=== PATIENT | female | born 1945 | race Caucasian/White ===

== ENCOUNTER 2017-01-01 01:29 | Emergency (ER) | payer MEDICARE, BC ==
[~2017-01-01] VITALS: Ht 170.2 cm; Wt 68.1 kg
[~2017-01-01 01:29] MED LIST: AMBIEN10 MG PO; ASPIRIN81 MG PO; DOXYCYCL HYC100 MG PO; MAREPA1000 MG OR; MUPIROCIN2 % EX; NORCO1 TA1 PO; SYNTHROID100 MCG PO; VALTREX1 GM PO; [UNRECOGNIZED DRUG - OTHER] PO
[2017-01-01 02:21] LABS: HEMOGLOBIN 13.5 g/dl (12.0-16.0); IMMATURE GRANULOCYTES 0.3 % (0.0-1.0); MEAN CELL VOLUME 98.6 fL CALC (80.0-100.0); MEAN CORPUSCULAR HGB 32.5 pG CALC (26.0-32.0); MEAN CORPUSCULAR HGB CONC 32.9 g/L CALC (32.0-36.0); NEUT# 5.41 thou/uL (2.00-7.15); RED BLOOD COUNT 4.16 mill/uL (4.20-5.60); RED CELL DISTRI WIDTH 13.8 % (11.5-15.5)
[2017-01-01 02:43] LABS: ALBUMIN 4.2 g/dL (3.2-5.0); ALKALINE PHOSPHATASE 39 u/l (38-126); ANION GAP 15 (6-22 (CALC)); BILIRUBIN, TOTAL 0.5 mg/dL (0.0-1.4); BUN 15 mg/dL (8-23); BUN/CREATININE RATIO 20 (12-20 (CALC)); CALCIUM 9.7 mg/dL (8.4-10.2); CARBON DIOXIDE 25 mmol/l (22-30); CHLORIDE 112 mmol/l (95-108); CREATININE 0.7 mg/dL (0.5-1.0); GFR > 60 ML/MIN (>=60 (CALC)); GFR FOR AFR.AMER. > 60 ML/MIN (>=60 (CALC)); GLUCOSE 95 mg/dL (82-115); POTASSIUM 4.2 mmol/l (3.5-5.1); SGOT/AST 22 u/l (9-36); SGPT/ALT 24 u/l (11-66); SODIUM 148 mmol/l (137-146); TOTAL PROTEIN 7.4 g/dL (6.3-8.2)
[2017-01-01] MEDS ORDERED: MIRALAX3350 N1 PO (02:53)
[2017-01-01 03:00] VITALS: BP 134/68
== END 2017-01-01 03:03 | disposition home or self-care (01) ==
LOC: ED 01:29
PROVIDERS: Emergency Medicine
DX: K59.00 Constipation, unspecified (principal); E03.9 Hypothyroidism, unspecified

== ENCOUNTER 2017-01-14 01:37 | Emergency (ER) | payer MEDICARE, BC ==
[~2017-01-14] VITALS: Ht 170.2 cm; Wt 70.0 kg
[~2017-01-14 01:37] MED LIST changes: +MIRALAX3350 N1 PO
[2017-01-14] MEDS ORDERED: MIRTAZAPINE30 M2 PO (01:44)
[2017-01-14] MEDS ORDERED: APAP/HYDRO325 MG/10 PO (01:44)
[2017-01-14] MEDS ORDERED: MIRALAX3350 N1 PO (03:32)
[2017-01-14 03:49] VITALS: BP 138/73
== END 2017-01-14 03:48 | disposition home or self-care (01) ==
LOC: ED 01:37
DX: R10.33 Periumbilical pain (principal); K59.00 Constipation, unspecified

== ENCOUNTER → 2017-12-10 | Outpatient (REF) | payer MEDICARE, BC ==
[~2017-12-10] MED LIST changes: +APAP/HYDRO325 MG/10 PO; +HEMP OIL; +LEVOTHYROXIN125 MCG PO; +MIRTAZAPINE30 M2 PO; +PROLIA60 MG/ML SC
== END | disposition home or self-care (01) ==
LOC: LAB 10:59
PROVIDERS: ATTEND Internal Medicine
DX: E03.9 Hypothyroidism, unspecified (principal)

== ENCOUNTER → 2017-12-13 | Outpatient (REF) | payer MEDICARE, BC | END | disposition home or self-care (01) | LOC: DI 11:22 | PROVIDERS: ATTEND Nurse Practitioner | DX: R06.02 Shortness of breath (principal); R09.89 Other specified symptoms and signs involving the circulatory and respiratory systems ==

== ENCOUNTER → 2018-04-26 | Outpatient (REF) | payer MEDICARE, BC ==
[2018-04-26 09:55] LABS: HEMATOCRIT 43.8 % (37.0-47.0); HEMOGLOBIN 13.9 g/dl (12.0-16.0); IMMATURE GRANULOCYTES 0.1 % (0.0-5.0); MEAN CELL VOLUME 99.3 fL CALC (80.0-100.0); MEAN CORPUSCULAR HGB 31.5 pG CALC (26.0-32.0); MEAN CORPUSCULAR HGB CONC 31.7 g/L CALC (32.0-36.0); NEUT# 3.55 thou/uL (2.00-7.15); RED BLOOD COUNT 4.41 mill/uL (4.20-5.60); RED CELL DISTRI WIDTH 14.6 % (11.5-15.5)
[2018-04-26 11:48] LABS: ALBUMIN 3.7 g/dL (3.2-5.0); ALKALINE PHOSPHATASE 54 u/l (38-126); ANION GAP 12 (6-22 (CALC)); BILIRUBIN, TOTAL 0.4 mg/dL (0.0-1.4); BUN 12 mg/dL (8-23); BUN/CREATININE RATIO 14 (12-20 (CALC)); CALCULATED LDLCHOLESTEROL 79 mg/dL (62-129 (CALC)); CARBON DIOXIDE 27 mmol/l (22-30); CHLORIDE 108 mmol/l (95-108); CREATININE 0.9 mg/dL (0.5-1.0); GFR > 60 ML/MIN (>=60 (CALC)); GFR FOR AFR.AMER. > 60 ML/MIN (>=60 (CALC)); HDL CHOLESTEROL 95 mg/dL (>=40); POTASSIUM 4.9 mmol/l (3.5-5.1); SGOT/AST 22 u/l (9-36); SODIUM 142 mmol/l (137-146); TOTAL CHOLESTEROL 187 mg/dl (0-199); TOTAL PROTEIN 7.1 g/dL (6.3-8.2); TOTAL TRIGLYCERIDES 68 mg/dl (30-149); VLDL CHOLESTROL 14 mg/dl (0-48 (CALC))
[2018-04-26 12:05] LABS: TSH, 3RD GENERATION 8.17 uIU/mL (0.47 - 4.68)
== END | disposition home or self-care (01) ==
LOC: LAB 09:03
PROVIDERS: ATTEND Internal Medicine
DX: E78.49 Other hyperlipidemia (principal)

== ENCOUNTER → 2018-05-04 | Outpatient (REF) | payer MEDICARE, BC | END | disposition home or self-care (01) | LOC: MAMMO 13:00 | PROVIDERS: ATTEND Internal Medicine | DX: Z12.31 Encounter for screening mammogram for malignant neoplasm of breast (principal); N95.1 Menopausal and female climacteric states ==

== ENCOUNTER → 2018-05-28 | Outpatient (REF) | payer MEDICARE, BC ==
[2018-05-28 10:58] LABS: TSH, 3RD GENERATION 18.9 uIU/mL (0.47 - 4.68)
== END | disposition home or self-care (01) ==
LOC: LAB 08:17
PROVIDERS: ATTEND Internal Medicine
DX: E03.9 Hypothyroidism, unspecified (principal)

== ENCOUNTER 2018-06-18 14:54 | Observation (INO) | payer MEDICARE, BC ==
[~2018-06-18] VITALS: Ht 170.2 cm; Wt 74.4 kg
--- NOTE | 2018-06-18 15:08 | NUR ---
PATIENT TO ROOM VIA WHEELCHAIR AND PHYSICIAN AT BEDSIDE FOR EVAL
[2018-06-18 16:14] LABS: IMMATURE GRANULOCYTES 0.3 % (0.0-5.0); MEAN CELL VOLUME 99.5 fL CALC (80.0-100.0); MEAN CORPUSCULAR HGB 31.2 pG CALC (26.0-32.0); MEAN CORPUSCULAR HGB CONC 31.3 g/L CALC (32.0-36.0); NEUT# 3.37 thou/uL (2.00-7.15); RED BLOOD COUNT 3.82 mill/uL (4.20-5.60); RED CELL DISTRI WIDTH 15.5 % (11.5-15.5)
[2018-06-18 16:19] LABS: HEMOGLOBIN 11.9 g/dl (12.0-16.0)
[2018-06-18 16:32] LABS: ALBUMIN 3.3 g/dL (3.2-5.0); ALKALINE PHOSPHATASE 41 u/l (38-126); ANION GAP 9 (6-22 (CALC)); BILIRUBIN, TOTAL 0.3 mg/dL (0.0-1.4); BUN 17 mg/dL (8-23); BUN/CREATININE RATIO 25 (12-20 (CALC)); CARBON DIOXIDE 26 mmol/l (22-30); CHLORIDE 110 mmol/l (95-108); CREATININE 0.7 mg/dL (0.5-1.0); GFR > 60 ML/MIN (>=60 (CALC)); GFR FOR AFR.AMER. > 60 ML/MIN (>=60 (CALC)); POTASSIUM 4.4 mmol/l (3.5-5.1); SGOT/AST 17 u/l (9-36); SODIUM 141 mmol/l (137-146); TOTAL PROTEIN 6.2 g/dL (6.3-8.2)
--- NOTE | 2018-06-18 16:56 | NUR ---
ASSISTED PT TO BATHROOM, GATE SLIGHTLY UNSTEADY, AMBULATED WITH CANE. NOTED O2 SAT 88% ON RETURN TO BED. MD AWARE. SISTER AT BEDSIDE
--- NOTE | 2018-06-18 17:20 | NUR ---
PT WITH RR 18, NO DISTRESS, O2 SAT 96% ON RA
[2018-06-18] MEDS ORDERED: OMEPRAZOLE20 MG PO (17:27)
[2018-06-18] MEDS ORDERED: LEVOTHYROXIN100 MCG PO (17:27)
[2018-06-18 17:28] LABS: URINE BILIRUBIN - DIPSTICK NEGATIVE (NEGATIVE); URINE BLOOD DIPSTICK NEGATIVE (NEGATIVE); URINE COLOR YELLOW; URINE GLUCOSE - DIPSTICK NEGATIVE (NEGATIVE); URINE KETONE NEGATIVE (NEGATIVE); URINE LEUK ESTERASE NEGATIVE (NEGATIVE); URINE NITRITE - DIPSTICK NEGATIVE (Negative); URINE PROTEIN - DIPSTICK NEGATIVE (NEG-TRACE); URINE UROBILINOGEN - DIPSTICK 0.2 E.U./dL (0.2)
[2018-06-18] MEDS ORDERED: LEXAPRO10 MG PO (17:28)
--- NOTE | 2018-06-18 17:45 | NUR ---
PT AWARE OF ADMISSION AND AGREEABLE. VSS. PT IN NO DISTRESS. PT CONSUMED 100% OF MEAL TRAY
[2018-06-18 18:00] LABS: TSH, 3RD GENERATION 1.22 uIU/mL (0.47 - 4.68)
--- NOTE | 2018-06-18 18:01 | NUR ---
CALLED REPORT TO GABBIE CLAIRE MS
--- NOTE | 2018-06-18 18:09 | NUR ---
PT TRANSPORTTED TO [place] VIA STRETCHER ON TELE IN STABLE CONDITION
--- NOTE | 2018-06-18 18:20 | NUR ---
PT ARRIVED ON FLOOR VIA STRETCHER ACCOMPANIED BY ER STAFF IN STABLE CONDITION; AMBULATE TO DIGITAL STANDING SCALE WITH SLOW STEADY GAIT; WT AND VITALS OBTAIN WALKED WITH SLOW STEADY GAIT TO RESTROOM, ACCCOMPANIED BY [employer]ER AND BACK TO BED; VOIDED A FEW DROPS. A/O; CALL BEEBE IN REACH, SAFETY PREAUTION REINFORCE;
[2018-06-18 18:37] VITALS: BP 149/80
--- NOTE | 2018-06-18 19:00 | NUR ---
RECIEVED REPORT FROM DAY NURSE. PT RESTING QUIETLY IN BED. NO NEEDS AT THIS TIME. CALL BEEBE IN REACH. WILL CONTINUE TO MONITOR.
[2018-06-18 19:22] VITALS: BP 123/73
--- NOTE | 2018-06-18 21:00 | NUR ---
PTRESTING IN BED WITH LIGHTS OFF. NO S/S OF DISTRESS. WILL CONTINUE TO MONITOR.
--- NOTE | 2018-06-18 23:00 | NUR ---
PT ASLEEP AT THIS TIME. WAKES WITH VERBAL STIMULI. ASSESMENT COMPLETED AT THIS TIME. IV FLUSHES WELL. O2 @ 2L AT BEDSIDE. NO NEEDS OR COMPLAINTS. WILL CONTINUE TO MONITOR.
[2018-06-18 23:41] VITALS: BP 113/67
--- NOTE | 2018-06-19 04:00 | NUR ---
PT RESTING QUIETLY IN BED WITH EYES CLOSED. NO S/S OF DISTRESS NOTED. WILL CONTINUE TO MONITOR.
[2018-06-19 04:08] VITALS: BP 141/81
[2018-06-19 06:22] LABS: IMMATURE GRANULOCYTES 0.2 % (0.0-5.0); MEAN CELL VOLUME 97.9 fL CALC (80.0-100.0); MEAN CORPUSCULAR HGB 30.9 pG CALC (26.0-32.0); MEAN CORPUSCULAR HGB CONC 31.6 g/L CALC (32.0-36.0); NEUT# 2.72 thou/uL (2.00-7.15); RED BLOOD COUNT 3.88 mill/uL (4.20-5.60); RED CELL DISTRI WIDTH 15.5 % (11.5-15.5)
[2018-06-19 06:39] LABS: ANION GAP 9 (6-22 (CALC)); BUN 15 mg/dL (8-23); BUN/CREATININE RATIO 24 (12-20 (CALC)); CARBON DIOXIDE 27 mmol/l (22-30); CHLORIDE 110 mmol/l (95-108); CREATININE 0.6 mg/dL (0.5-1.0); GFR > 60 ML/MIN (>=60 (CALC)); GFR FOR AFR.AMER. > 60 ML/MIN (>=60 (CALC)); POTASSIUM 4.3 mmol/l (3.5-5.1); SODIUM 141 mmol/l (137-146)
--- NOTE | 2018-06-19 06:50 | NUR ---
REPORT RECEIVED FROM GABBIE GONZALEZ PT APPEARS TO BE SLEEPING ON HER LT SIDE; RESP EVEN AND UNLABORED ON ROOM AIR; CALL BEEBE IN REACH.
[2018-06-19 07:53] VITALS: BP 129/73
--- NOTE | 2018-06-19 08:07 | NUR ---
ASSESSMENT COMPLETED; PT SITTING UP IN BED AWAKE, ALERT; RESP EVEN AND UNLABORED ON ROOM AIR; TELE IN PLACE; #22 RW, FLUSHED FREELY, SITE APPEARS HEALTHY; AMBULATE TO RESTROOM, WALK WITH SLOW STEADY GAIT; VOIDED 300CC CLEAR, YELLOW URINE; CALL BEEBE IN REACH; VOICE NO CONCERNS; WILL CONTINUE TO MONITOR.
--- NOTE | 2018-06-19 10:26 | NUR ---
PT LAYING IN BED AWAKE, DOXYCYCLINE INFUSING, C/O OF SLIGHT BURNING, SLOW RATE TO 75CC/HR;
--- NOTE | 2018-06-19 10:53 | NUR ---
PT AMBULATING THE HALLS WITH HER SISTER; MONITORING HER O2 WHILE WALKING; 02 DROP TO 85; AMBULATE BACK TO ROOM INTO BED; @1050 02 STAT UP TO 94% ON ROOM AIR, HR 80; ASK FOR A COKE (DONE) SISTER REMAIN AT BEDSIDE; CALL BEEBE IN REACH.
[2018-06-19 11:07] VITALS: BP 156/82
--- NOTE | 2018-06-19 11:08 | NUR ---
DAVID BRAY AT BEDSIDE TO DISCUSS POC.
[2018-06-19] MEDS ORDERED: OXY1 (12:23)
--- NOTE | 2018-06-19 12:57 | NUR ---
WALKING TEST DONE, AT REST 95% ON ROOM AIR, DROP TO 85% WHILE WALKING; C/O OF BEING MIDLY DIZZY TOWARDS THE END OF WALK TEST. NOW BACK INTO BED, REFUSING TO SIT UP IN RECLINER. CALL BEEBE IN REACH.
--- NOTE | 2018-06-19 13:00 | NUR ---
PT RESTING IN BED, RESP EVEN AND UNLABORED, 02@2L NC, 02 READING AT 98%; VOICE NO CONCERNS; CALL BEEBE IN REACH.
[2018-06-19 16:00] VITALS: BP 139/76
--- NOTE | 2018-06-19 16:22 | NUR ---
L CARE AT BEDSIDE WITH 02
--- NOTE | 2018-06-19 16:41 | NUR ---
DC INSTRUCTIONS GIVEN TO PT AND FAMILY, VERBALIZE UNDERSTANDING; IV REMOVED CATH INTACT.
--- NOTE | 2018-06-19 16:49 | NUR ---
Discharge instructions given. Patient verbalizes understanding of same. Discharged in stable condition via Wheelchair to Home with family. All belongings sent with pt.
== END 2018-06-19 16:44 | disposition home or self-care (01) ==
LOC: ED 14:54 → ED-I 17:01 → ED 17:14 → MS2 17:15
PROVIDERS: Emergency Medicine; ADMIT Internal Medicine; ATTEND Internal Medicine
DX: R09.02 Hypoxemia (principal); J44.9 Chronic obstructive pulmonary disease, unspecified; E03.9 Hypothyroidism, unspecified; M54.5 Low back pain; G89.29 Other chronic pain; B48.8 Other specified mycoses; F32.9 Major depressive disorder, single episode, unspecified; M81.0 Age-related osteoporosis without current pathological fracture; Z87.891 Personal history of nicotine dependence; R06.02 Shortness of breath